=== PATIENT | female | born 1985 | race Hispanic/Latino ===

== ENCOUNTER 2017-09-05 11:21 | Outpatient (CLI) | payer BC | END 2017-09-05 11:22 | disposition home or self-care (01) | LOC: BICRAD 11:21 | PROVIDERS: ATTEND Family Medicine | DX: M41.25 Other idiopathic scoliosis, thoracolumbar region (principal) | CPT/HCPCS: 72081 ==

== ENCOUNTER 2017-10-31 15:09 | Outpatient (CLI) | payer BC | END 2017-10-31 15:10 | disposition home or self-care (01) | LOC: BICRAD 15:09 | PROVIDERS: ATTEND Family Medicine | DX: R07.9 Chest pain, unspecified (principal) | CPT/HCPCS: 71046 ==